=== PATIENT | female | born 1945 | race Caucasian/White ===

== ENCOUNTER → 2017-12-05 12:46 | Outpatient (CLI) | payer MEDICARE, OTHER ==
[2013-05-13 05:05] VITALS: BMI 28.0
[~2017-12-05 12:46] MED LIST: CARDIZEM SR60 MG PO; DEMEROL50 MG PO; PHENERGAN25 M1 PO; TOPROL XL25 MG PO; VALIUM5 MG PO
== END | disposition home or self-care (01) ==
LOC: D.MRI 12:46
DX: S49.91XA Unspecified injury of right shoulder and upper arm, initial encounter (principal); V89.2XXA Person injured in unspecified motor-vehicle accident, traffic, initial encounter; Y93.89 Activity, other specified; Y92.410 Unspecified street and highway as the place of occurrence of the external cause

== ENCOUNTER 2019-01-18 14:26 | Inpatient (IN) | payer MEDICARE, OTHER ==
[~2019-01-18] VITALS: Ht 154.9 cm; Wt 60.7 kg
[2019-01-18] MEDS ORDERED: LEVOXYL75 MCG PO (14:46)
[2019-01-18 15:25] LABS: BASOPHILS 0.1 % (0-2); EOSINOPHILS 0.1 % (0-7); HEMATOCRIT 41.4 % (36.0-48.0); HEMOGLOBIN 13.4 g/dL (12-16); IMMATURE GRANULOCYTES 0.1 % (0-5); LYMPHOCYTES 6.2 % (15-50); MCH 29.5 pg (26.0-34.0); MCHC 32.4 g/dL (31.0-37.0); MCV 91.2 fL (80.0-100.0); MEAN PLATELET VOLUME 9.2 fL (7.4-10.4); MONOCYTES 7.9 % (2-11); NEUTROPHILS 85.6 % (40-80); PLATELET COUNT 170 10x3/uL (130-400); RBC 4.54 10x6/uL (4.00-5.40); RDW 15.9 % (11.5-14.5); WBC 9.5 10x3/uL (4.8-10.8)
[2019-01-18 15:39] LABS: CALC OSMOLALITY 286 mosm/kg (275-300); CALCIUM 8.9 mg/dL (8.5-10.1); CARBON DIOXIDE 29.8 mmol/L (21.0-32.0); CHLORIDE - SERUM 102 mmol/L (98-107); CREATININE - SERUM 0.7 mg/dL (0.6-1.3); GLUCOSE 173 mg/dL (74-106); POTASSIUM - SERUM 3.9 mmol/L (3.5-5.1); SODIUM 141 mmol/L (136-145); UREA NITROGEN 17 mg/dL (7-18); eGFR NON AFRICAN AMERICAN 87 mL/min (90-120)
[2019-01-18 15:47] LABS: ALBUMIN 3.6 g/dL (3.4-5.0); ALKALINE PHOSPHATASE 75 U/L (46-116); ALT (SGPT) 32 U/L (10-68); AMYLASE - SERUM 38 U/L (25-115); LIPASE 74 U/L (73-393); PROTEIN - SERUM 7.4 g/dL (6.4-8.2)
[2019-01-18 15:50] LABS: TROPONIN-I < 0.017 ng/mL (0.000-0.060)
[2019-01-18 18:29] LABS: APPEARANCE CLEAR (CLEAR); BILIRUBIN NEGATIVE (NEGATIVE); COLOR YELLOW (YELLOW); GLUCOSE NEGATIVE (NEGATIVE); KETONE SMALL mg/dL (NEGATIVE); NITRITE NEGATIVE (NEGATIVE); PROTEIN TRACE mg/dL (NEGATIVE); SPECIFIC GRAVITY 1.015 (1.005-1.020); UROBILINOGEN NORMAL (NORMAL)
[2019-01-18 18:30] LABS: RED CELLS - URINE 0-5 /hpf (0-5); WHITE CELLS - URINE 25-50 /hpf (NEGATIVE)
[2019-01-18 18:31] LABS: BACTERIA MODERATE /hpf (NEGATIVE); EPITHELIAL CELLS 0-5 /hpf (0-5)
--- NOTE | 2019-01-18 20:48 | NUR ---
PT ARRIVED VIA W/C FROM ER. NO DISTRESS NOTED. CALL LIGHT WITHIN REACH.
[2019-01-18 21:33] VITALS: BP 110/52; BMI 25.2
--- NOTE | 2019-01-18 22:38 | NUR ---
ADMISSION ASSESSMENT, HISTORY AND HOME MED LIST COMPLETED BY 2200 HRS. VSS. IV TO LAC WITH NS AT 100CC/HR. IV PATENT. BRUISE NOTED TO R ARM. LUNGS CTA. L HIP STIFF S/P HIP REPLACEMENT IN SEPTEMBER. ALERT AND ORIENTED TO PERSON, PLACE AND TIME. NON SLIP SOCKS PLACED ON PT. PT CURRENTLY WATCHING TV. SR UP X1, CALL LIGHT WITHIN REACH.
--- NOTE | 2019-01-18 23:54 | NUR ---
IV RESITED TO LFA PER PT'S REQUEST. #20 WITH ATTEMPT X1. PT TOLERATED ACTIVITY WELL. IV TO LAC DC'D WITH CATHETER INTACT. SR UP X1, CALL LIGHT WITHIN REACH.
--- NOTE | 2019-01-19 02:00 | NUR ---
PT AWAKE; STATES STILL HAS ELISE BUT PAIN MUCH LESS INTENSE. VOIDED 500CC OF DARK YELLOW URINE. CALL LIGHT WITHIN REACH.
[2019-01-19 04:00] VITALS: BP 120/43
--- NOTE | 2019-01-19 04:12 | NUR ---
PT SHAKING UNCONTROLABLY AT 0340 HRS AND HAS C/O ELISE. TEMP 99.1. TYLENOL 650MG PO GIVEN FOR C/O ELISE AND ADDITIONAL BLANKET GIVEN OT PT. PT NOT SHAKING AT THIS TIME. CALL LIGHT WITHIN REACH.
--- NOTE | 2019-01-19 04:18 | NUR ---
TEMP NOW 102.6. NO SHAKING AT THIS TIME.
--- NOTE | 2019-01-19 06:25 | NUR ---
VSS EXCEPT INTERMITTENT ELEVATED TEMP. STATES FEELS BETER THIS AM. NEEDS MET; WILL CONTINUE TO MONITOR.
--- NOTE | 2019-01-19 07:39 | NUR ---
PT RESTING. RR EVEN AND UNLABORED. ASKED IF SHE WANTED SCDs, PT REFUSED. DENIES FURTHER NEEDS OR PAIN AT THIS TIME. BED IN LOWEST POSITION. CALL LIGHT WITHIN REACH. WILL CONTINUE TO MMONITOR.
[2019-01-19 08:00] VITALS: BP 120/79
--- NOTE | 2019-01-19 09:30 | NUR ---
PT C/O MIGRANE PAIN AND IS FEBRILE. TASNEEM BRINK NOTIFIED. ORDER FOR EXEDRINE RECIEVED AND GIVEN PER ORDER. REMOVED BLANKETS FROM PT AND COVERED HER WITH SHEET. COLD WASH CLOTH APPLIED TO FOREHEAD.WILL CONTINUE TO MONITOR
[2019-01-19 10:51] VITALS: Ht 154.9 cm; Wt 60.7 kg
[2019-01-19 12:00] VITALS: BP 87/45
--- NOTE | 2019-01-19 19:30 | NUR ---
RECEIVED BEDSIDE REPORT. PATIENT IS ALERT AND ORIENTED, RESTING COMFORTABLY IN BED. RESPIRATIONS ARE EVEN AND UNLABORED. NO S/S OF DISTRESS. NO C/O PAIN. DR HERNANDEZ SEEN PATIENT. NEEDS MET. CALL LIGHT WITHIN REACH. WILL CPOC.
[2019-01-19 20:00] VITALS: BP 128/53
[2019-01-20] VITALS: BP 148/70
[2019-01-20 04:25] VITALS: BP 110/53
[2019-01-20 08:50] VITALS: BP 104/56
[2019-01-20 12:36] VITALS: BP 125/57
--- NOTE | 2019-01-20 14:35 | NUR ---
PT UP AND WALKING THE HALLS AT THIS TIME. NO S/S OF DISTRESS NOTED. PT SEEMS TO BE IN GOOD SPIRITS AND DENIES ANY NEEDS. WILL CTM. NS INFUSING @100ML/HR VIA L.FOR PIV.
[2019-01-20 14:52] LABS: BASOPHILS 0.2 % (0-2); EOSINOPHILS 0.8 % (0-7); HEMATOCRIT 34.1 % (36.0-48.0); LYMPHOCYTES 27.4 % (15-50); MCH 28.9 pg (26.0-34.0); MCHC 31.4 g/dL (31.0-37.0); MCV 92.2 fL (80.0-100.0); MEAN PLATELET VOLUME 9.3 fL (7.4-10.4); MONOCYTES 13.3 % (2-11); NEUTROPHILS 58.3 % (40-80); PLATELET COUNT 150 10x3/uL (130-400); RDW 15.9 % (11.5-14.5)
[2019-01-20 15:04] LABS: HEMOGLOBIN 10.7 g/dL (12-16); WBC 5.3 10x3/uL (4.8-10.8)
[2019-01-20 17:05] VITALS: BP 118/54
--- NOTE | 2019-01-20 17:43 | NUR ---
I have reviewed this patient and I concur with the Shift Assessment completed by the Licensed Practical Nurse today this shift.
--- NOTE | 2019-01-20 19:18 | NUR ---
EVENING ROUNDS COMPLETE. PT LAYING IN BED, AAOX4. NO SIGNS OF DISTRESS. PT DENIES ANY PAIN OR NEEDS AT THIS TIME. CL IN REACH, BED IN LOWEST POSITION.
[2019-01-20 20:00] VITALS: BP 135/57
[2019-01-21] VITALS: BP 113/50
[2019-01-21 04:00] VITALS: BP 118/87
[2019-01-21 04:26] LABS: BASOPHILS 0.3 % (0-2); HEMOGLOBIN 10.8 g/dL (12-16); IMMATURE GRANULOCYTES 0.2 % (0-5); LYMPHOCYTES 27.9 % (15-50); MCH 29.1 pg (26.0-34.0); MCHC 31.8 g/dL (31.0-37.0); MCV 91.6 fL (80.0-100.0); MEAN PLATELET VOLUME 10.1 fL (7.4-10.4); MONOCYTES 13.6 % (2-11); PLATELET COUNT 132 10x3/uL (130-400); RBC 3.71 10x6/uL (4.00-5.40); WBC 5.9 10x3/uL (4.8-10.8)
[2019-01-21 04:57] LABS: CALC OSMOLALITY 284 mosm/kg (275-300); CALCIUM 8.2 mg/dL (8.5-10.1); CARBON DIOXIDE 26.5 mmol/L (21.0-32.0); CHLORIDE - SERUM 108 mmol/L (98-107); CREATININE - SERUM 0.7 mg/dL (0.6-1.3); POTASSIUM - SERUM 3.1 mmol/L (3.5-5.1); SODIUM 143 mmol/L (136-145); UREA NITROGEN 11 mg/dL (7-18); eGFR NON AFRICAN AMERICAN 87 mL/min (90-120)
[2019-01-21 04:58] LABS: GLUCOSE 120 mg/dL (74-106)
[2019-01-21 08:45] VITALS: BP 119/57
--- NOTE | 2019-01-21 09:13 | NUR ---
PT UP BRUSHING HER TEETH. PT A/O X4, RESP EVEN AND NONLABORED ON RA. LT FA INFUSING NS AT 100CC/HR. PT DENIES ANY NEEDS AT THIS TIME. CALL LIGHT IN REACH, NAD NOTED, WILL CONTINUE PLAN OF CARE.
[2019-01-21] MEDS ORDERED: LEVOFLOXACIN500 MG PO (09:53)
--- NOTE | 2019-01-21 12:44 | NUR ---
SECOND TIME TRYING TO PROVIDED DISCHARGE TEACHING TO PT. PT EATING LUNCH WANTS TO WAIT UNTIL SHE IS DONE, WILL PUT CALL LIGHT ON WHEN READY FOR NURSE TO COME DO DISCHARGE TEACHING.
[2019-01-21 13:04] VITALS: BP 128/59
--- NOTE | 2019-01-21 13:32 | NUR ---
PROVIDED VERBAL AND WRITTEN DISCHARGE TEACHING TO PT, WHO VERBALIZED UNDERSTANDING REGARDING TEACHING. LT FA IV D/C WITH CATHETER INTACT BY MANAGING EDITOR. PT WILL NOTIFY WHEN READY FOR WHEELCHAIR.
--- NOTE | 2019-01-21 15:00 | NUR ---
PT LEFT UNIT VIA WHEELCHAIR, WITH ALL BELONGINGS. NAD NOTED.
--- NOTE | 2019-01-21 16:47 | MORECARE ---
CASE MANAGEMENT DISCHARGE SUMMARY PATIENT: ABDOULAYE DONOVAN UNIT: [id number] ADM DATE: 01/18/19 AGE: 73 : [birth year] SEX: F ROOM/BED: D.2137 AUTHOR: SILVIO CAI PHYSICIAN: REFERRING PHYSICIAN: SHARI GREEN MD DATE OF SERVICE: 01/21/19 Discharge Plan Patient Name: ABDOULAYE DONOVAN Facility: [facility]:[place] : 1945 Planned Disposition: Home Anticipated Discharge Date: 01/21/19 Discharge Date: 01/21/2019 Expected LOS: 3 Initial Reviewer: [id number] Initial Review Date: 01/21/2019 Generated: 01/21/19 5:47 pm Comments DCP- Discharge Planning Updated by [id number]: Moshe Beltran on 01/21/19 3:[address] Patient Name: ABDOULAYE DONOVAN Admission Status: ER Accout number: [id number] Admission Date: 01-18-2019 : 1945 Admission Diagnosis: Attending: SHARI GREEN Current LOS: 3 Anticipated DC Date: 01-21-2019 Planned Disposition: Home Primary Insurance: MEDICARE A & B Discharge Planning Comments: CM MET WITH PT IN ROOM TO DISCUSS DISCHARGE PLANNING AND NEEDS. PT REPORTS LIVING AT HOME INDEPENDENTLY WITH SPOUSE. PT HAS A CANE SHE USES, A WALKER AND BEDSIDE COMMODE SHE DOES NOT USE FROM [facility]. PT HAS NO OUTSIDE SERVICES ASSISTING IN THE HOME. CM DISCUSSED AVAILABILITY OF HOME HEALTH, REHAB SERVICES AND MEDICAL EQUIPMENT. PT DENIES DISCHARGE NEEDS, REPORTS HER WILL PICK HER UP FOR DISCHARGE HOME. IMPORTANT MESSAGE FROM MEDICARE PROVIDED AND EXPLAINED. Patient Care Secretary: Moshe Beltran DCPIA - Discharge Planning Initial Assessment Updated by [id number]: Moshe Beltran on 01/21/19 4:42 pm * Is the patient Alert and Oriented? Yes * How many steps to enter\exit or inside your home? * PCP DR. FAULKNER * Pharmacy [facility] * Preadmission Environment Home with Family * ADLs Independent * Equipment Bedside Commode Cane Walker * Other Equipment [facility] - PREFERRED MEDICAL EQUIPMENT PROVIDER * List name and contact numbers for known caregivers / representatives who currently or will assist patient after discharge: JARON DONOVAN, SPOUSE, * Verbal permission to speak to the caregivers and representatives has been obtained from the patient. N/A * Community resources currently utilized None * Please name any agencies selected above. NONE * Additional services required to return to the preadmission environment? No * Can the patient safely return to the preadmission environment? Yes * Has this patient been hospitalized within the prior 30 days at any hospital? Yes Coverage Notice Reviewer: [id number] Bella Beltran Notice Issued Date-Time: 01/21/2019 11:50 Notice Type: IM Discharge Notice Notice Delivered To: Patient Relationship to Patient: Ms Sql Server Developer Name: Delivery Method: HAND - Hand Delivered Morenita Days: Prior Verbal Notification: Recipient Understood Notice: Yes Recipient Signature: Yes Med Rec Note Co-signed by Attending: Coverage Notice Comment: Patient Name: ABDOULAYE DONOVAN Page [phone] at 1647 All edits/amendments must be made on the electronic document DICTATION DATE: 01/21/191646 SENIOR BRAND MANAGER: HANS 01/21/191646 RPT#: [id number] DC DATE:01/21/19 STATUS: DIS IN [facility] [address] [place] [address] END OF REPORT
== END 2019-01-21 15:24 | disposition home or self-care (01) | DRG 872 ==
LOC: D.ER 14:26 → D.M2 19:29 → D.SDCHOLD 01-19 08:44 → D.M2 01-19 08:44 → D.SDCHOLD 01-21 13:44 → D.M2 01-21 15:24
PROVIDERS: Family Medicine; ADMIT Internal Medicine Nephrology; ATTEND Internal Medicine Nephrology
DX: A41.9 Sepsis, unspecified organism (principal); N39.0 Urinary tract infection, site not specified; N10 Acute pyelonephritis; I10 Essential (primary) hypertension; E78.5 Hyperlipidemia, unspecified; E03.9 Hypothyroidism, unspecified; F41.9 Anxiety disorder, unspecified; N76.0 Acute vaginitis

== ENCOUNTER → 2019-10-05 12:53 | Outpatient (CLI) | payer MEDICARE, BC ==
[2019-01-19 10:51] VITALS: BMI 25.2
[~2019-10-05 12:53] MED LIST changes: +LEVOFLOXACIN500 MG PO; +LEVOXYL75 MCG PO
== END | disposition home or self-care (01) ==
LOC: D.MRI 12:53
PROVIDERS: ATTEND Emergency Medicine
DX: M54.12 Radiculopathy, cervical region (principal)

== ENCOUNTER 2019-12-16 03:48 | Inpatient (IN) | payer MEDICARE, BC ==
[~2019-12-16] VITALS: Ht 154.9 cm; Wt 64.0 kg
[2019-12-16] MEDS ORDERED: MEPERIDINE HCL50 MG PO (03:59)
[2019-12-16] MEDS ORDERED: ACETAMINOPHEN500 M1 PO (03:59)
[2019-12-16] MEDS ORDERED: TOPROL XL25 MG PO (04:00)
[2019-12-16] MEDS ORDERED: FARXIGA10 MG PO (04:01)
[2019-12-16 04:50] LABS: BASOPHILS 0.2 % (0-2); EOSINOPHILS 0.1 % (0-7); HEMATOCRIT 46.1 % (36.0-48.0); HEMOGLOBIN 15.1 g/dL (12-16); IMMATURE GRANULOCYTES 0.3 % (0-5); MCH 30.8 pg (26.0-34.0); MCHC 32.8 g/dL (31.0-37.0); MCV 93.9 fL (80.0-100.0); MEAN PLATELET VOLUME 10.1 fL (7.4-10.4); MONOCYTES 9.3 % (2-11); NEUTROPHILS 77.1 % (40-80); RBC 4.91 10x6/uL (4.00-5.40); RDW 12.5 % (11.5-14.5); WBC 12.9 10x3/uL (4.8-10.8)
[2019-12-16 04:54] LABS: ANION GAP 15.9 mmol/L (8-16); CALCIUM 9.6 mg/dL (8.5-10.1); CARBON DIOXIDE 25.7 mmol/L (21.0-32.0); CREATININE - SERUM 0.8 mg/dL (0.6-1.3); POTASSIUM - SERUM 3.6 mmol/L (3.5-5.1)
[2019-12-16 04:55] LABS: PLATELET COUNT 208 10x3/uL (130-400)
[2019-12-16 05:02] VITALS: BP 114/58
[2019-12-16 05:06] LABS: BILIRUBIN - TOTAL 0.45 mg/dL (0.2-1.3); PROTEIN - SERUM 8.5 g/dL (6.4-8.2)
[2019-12-16 05:13] LABS: BILIRUBIN NEGATIVE (NEGATIVE); KETONE MODERATE mg/dL (NEGATIVE); NITRITE POSITIVE (NEGATIVE); UROBILINOGEN NORMAL mg/dL (< 2)
[2019-12-16 05:14] LABS: BACTERIA MODERATE HPF (NONE SEEN); EPITHELIAL CELLS 0-5 /hpf (0-5)
[2019-12-16 05:56] VITALS: BP 107/53
--- NOTE | 2019-12-16 05:58 | NUR ---
back from ct
--- NOTE | 2019-12-16 07:18 | NUR ---
PT GIVEN ADENOSINE TO CONVERT HER OUT OF SVT AND PUT HER BACK INTO A NSR. PT TOLERATED THE MEDICATION WELL. PT'S CURRENT V/S HR86, BP 147//72, O2 SAT 96% RR14. PT REPORTS THAT HER CHEST DISCOMFORT HAS GREATLY SUBSIDED AFTER CONVERSION.
--- NOTE | 2019-12-16 13:29 | NUR ---
PATIENT CAME TO DESK STATING SHE NEEDS SOMETHING FOR PAIN AND WANTED TO KNOW WHAT SHE HAD ORDERED, I EXPLAINED THAT THE DOCTOR HAS ORDERED TORADOL TO EASE HER PAIN PATIENT THEN STATED" THAT IS LIKE EATING 3 GRAPES! tHAT WILL DO NOTHING FOR ME" ADVISED PATIENT THAT WE WILL TALK TO HER WHEN SHE MAKES ROUNDS. NO OTHER NEEDS VOICED, CONTINUE WITH PLAN OF CARE
[2019-12-16 14:22] VITALS: BP 121/92; Ht 154.9 cm; Wt 64.0 kg
[2019-12-16 14:30] VITALS: BP 121/92
--- NOTE | 2019-12-16 21:17 | NUR ---
REC'D. SITTING ON SIDE OF BED DRY HEAVING GOWN GIVEN LINENS CHGED INFORMED HAD ELIESER AT 1730 WILL BE 2130 BEFORE ANOTHER DOSE DUE VOICES UNDERSTANDING. REINFORCE NPO AT MIDNITE.WILL CONTINUE TO MONITOR FOR ANY CHGES AND FOLLOW CURRENT PLAN OF CARE
[2019-12-16 22:21] VITALS: BP 142/72
--- NOTE | 2019-12-17 03:10 | NUR ---
I have reviewed this patient and I concur with the Shift Assessment completed by the Licensed Practical Nurse today this shift.
[2019-12-17 04:00] VITALS: BP 116/88
[2019-12-17 06:19] LABS: HEMATOCRIT 43.4 % (36.0-48.0); HEMOGLOBIN 14.1 g/dL (12-16); MCH 30.8 pg (26.0-34.0); MCHC 32.5 g/dL (31.0-37.0); MCV 94.8 fL (80.0-100.0); PLATELET COUNT 182 10x3/uL (130-400); RBC 4.58 10x6/uL (4.00-5.40); RDW 12.9 % (11.5-14.5)
[2019-12-17 06:28] LABS: ANION GAP 13.2 mmol/L (8-16); CALCIUM 8.5 mg/dL (8.5-10.1); CARBON DIOXIDE 27.1 mmol/L (21.0-32.0); MAGNESIUM - SERUM 1.8 mg/dL (1.8-2.4); PHOSPHOROUS 4.3 mg/dL (2.5-4.9)
[2019-12-17 06:30] LABS: CREATININE - SERUM 1.3 mg/dL (0.6-1.3); POTASSIUM - SERUM 4.3 mmol/L (3.5-5.1)
[2019-12-17 06:46] LABS: LYMPHOCYTES 7 % (15-50); MONOCYTES 2 % (2-11); NEUTROPHILS 70 % (40-80); PLATELET ESTIMATE NORMAL
--- NOTE | 2019-12-17 07:35 | NUR ---
ASSESSMENT PER FLOW SHEET. PATIENT IS WITHOUT DISTRESS.NPO FOR PROCEDURE TODAY. PATIENT IS VERY ANXIOUS RE.. HER VASU SALMERON HAS CANCER AND SHE NEEDS TO BE HOME.MONITOR
[2019-12-17 08:00] VITALS: BP 119/56
--- NOTE | 2019-12-17 08:30 | NUR ---
LEFT UNIT VIA BED FOR OR.
[2019-12-17 10:54] VITALS: BP 103/48
--- NOTE | 2019-12-17 11:13 | NUR ---
BACK FROM PACU. VSS. PATIENT HAS VOIDED
[2019-12-17 11:56] VITALS: BP 109/52
--- NOTE | 2019-12-17 12:15 | OP ---
PATIENT NAME: ABDOULAYE DONOVAN MEDICAL RECORD: [id number] :[birth year] LOCATION:D.[id number] ADMISSION DATE:12/16/19 SURGEON: TOR HERNANDEZ MD DATE OF OPERATION: 12/17/2019 SURGEON: Tor Hernandez MD ANESTHESIA: General anesthesia by Haroon Hester CRNA. DIAGNOSIS: Left proximal ureteral 5-mm stone. PROCEDURE: Cystoscopy, left retrograde pyelogram, left ESWL times 1500 shocks. FINDINGS: Radiolucent proximal ureteral stone, seen on the retrograde pyelogram. No bladder tumors. CLINICAL HISTORY: This is a 74-year-old female with no previous history of kidney stone. She came to the Emergency Room with acute left flank pain. A CT scan of the abdomen and pelvis shows a 5-mm stone in the left proximal ureter causing hydronephrosis. She was admitted for pain control. She comes today to the OR to have a planned left ESWL with left ureteral stent insertion. She was given Ancef 2 grams IV trailhead construction worker to the OR. DESCRIPTION OF PROCEDURE: The patient was placed on the treatment table. Fluoroscopy was performed, but she has a lot of bowel contents in the colon. We could not clearly identify a radiodense stone. The patient is still complaining of 3 out of 10 left-sided flank pain. We decided to proceed with a retrograde pyelogram to at least determine if she has an obstructive stone somewhere in the ureter. The patient was given induction of general anesthesia. She was then placed into lithotomy position and prepped and draped. A 22-Uzbek cystoscope with 30-degree lens was used for visualization. She has single ureteral orifices on each side and no bladder tumors were seen. A 5-Uzbek open-ended ureteral catheter was inserted and a retrograde pyelogram was performed. In the proximal ureter, we found a radiolucency surrounded by contrast, which identified the stone. The sone otherwise is not visible without the contrast. I brought the ureteral catheter to a point just about 1 cm distal to the stone. We continued to inject diluted contrast while the stone was targeted in 2 planes. A 1500 shocks were given to the stone. We then repeated the retrograde pyelogram through the ureteral catheter, which we had left in place. At this point, we could see no further stones and there was no further hydronephrosis or filling defects in the ureter. We then terminated the procedure. The ureteral catheter was removed entirely. No stent was inserted as we had to use the ureteral catheter to inject contrast to visualize the stone to target and to monitor our progress. The patient will be discharged home today with some pain medication. I will see her in followup in 1 months' time. TRANSINT:[id number] Voice Confirmation ID: [id number] DOCUMENT ID: [id number] OPERATIVE REPORT [id number] ABDOULAYE DONOVAN, TOR Thompson MD at 1215 CC: [id number] DICTATION DATE: 12/17/19 1026 SENIOR SOFTWARE ENGINEERING MANAGER: 12/17/19 1143 ADM IN [facility] [address] [place] [address]
[2019-12-17] MEDS ORDERED: HYDROCODON-ACE1 EAC7 PO (13:35)
[2019-12-17 15:53] VITALS: BP 110/42
[2019-12-17 20:00] VITALS: BP 108/45
[2019-12-17] MEDS ORDERED: MAG-OX 400 MG400 MG PO (22:14)
[2019-12-18] VITALS: BP 109/50
[2019-12-18 04:00] VITALS: BP 107/55
--- NOTE | 2019-12-18 04:05 | NUR ---
I have reviewed this patient and I concur with the Shift Assessment completed by the Licensed Practical Nurse today this shift.
[2019-12-18 08:00] VITALS: BP 95/41
[2019-12-18] MEDS ORDERED: LEVOFLOXACIN500 MG PO (08:26)
[2019-12-18] MEDS ORDERED: PROTONIX40 MG PO (08:26)
[2019-12-18 09:33] LABS: BASOPHILS 0.1 % (0-2); EOSINOPHILS 0.9 % (0-7); HEMATOCRIT 39.4 % (36.0-48.0); HEMOGLOBIN 12.8 g/dL (12-16); IMMATURE GRANULOCYTES 0.2 % (0-5); LYMPHOCYTES 17.4 % (15-50); MCH 30.6 pg (26.0-34.0); MCHC 32.5 g/dL (31.0-37.0); MCV 94.3 fL (80.0-100.0); NEUTROPHILS 72.4 % (40-80); PLATELET COUNT 153 10x3/uL (130-400); RBC 4.18 10x6/uL (4.00-5.40); RDW 12.8 % (11.5-14.5); WBC 10.2 10x3/uL (4.8-10.8)
[2019-12-18 09:48] LABS: ALBUMIN 3.1 g/dL (3.4-5.0); ANION GAP 11.7 mmol/L (8-16); BILIRUBIN - TOTAL 0.24 mg/dL (0.2-1.3); CALCIUM 8.9 mg/dL (8.5-10.1); POTASSIUM - SERUM 3.7 mmol/L (3.5-5.1); PROTEIN - SERUM 6.6 g/dL (6.4-8.2)
[2019-12-18] MEDS ORDERED: ZOFRAN ODT4 MG/UDTAB PO (10:43)
--- NOTE | 2019-12-18 13:45 | NUR ---
IV RESITED TO RIGHT FOREARM X1 STICK USING ASEPTIC TECH,20G. IV LEFT FOREARM DCD WITH CATH TIP INTACT. IV LEAKING
--- NOTE | 2019-12-18 14:48 | MORECARE ---
CASE MANAGEMENT DISCHARGE SUMMARY PATIENT: ABDOULAYE DONOVAN UNIT: [id number] ADM DATE: 12/16/19 AGE: 74 : [birth year] SEX: F ROOM/BED: D.2234 AUTHOR: SILVIO CAI PHYSICIAN: REFERRING PHYSICIAN: ERNESTINA MUNGUIA MD DATE OF SERVICE: 12/18/19 Discharge Plan Patient Name: ABDOULAYE DONOVAN Facility: [facility]:[place] : 1945 Planned Disposition: Anticipated Discharge Date: Discharge Date: Expected LOS: Initial Reviewer: [email or web address] Initial Review Date: 12/16/2019 Generated: 12/18/19 3:47 pm Comments DCP- Discharge Planning Updated by [id number]: Olga Wright on 12/18/19 1:[address] Patient Name: ABDOULAYE DONOVAN Admission Status: ER Accout number: [id number] Admission Date: 12-16-2019 : 1945 Admission Diagnosis:SEPSIS, UNSPECIFIED ORGANISM Attending: BALBIR Current LOS: 2 Anticipated DC Date: Planned Disposition: Primary Insurance: MEDICARE A & B Discharge Planning Comments: CM met with patient at bedside after explaining CM role and obtaining verbal consent. CM discussed availability / needs of home health, REHAB and medical equipment. STATES PLANS TO DC TO HOME AND DOES NOT WANT HH OR REHAB, DOES NOT NEED EQUIPMENT. CM TO FOLLOW AND ASSIST NEEDED. Wrapper Caser: Olga Wright Patient Name: ABDOULAYE DONOVAN Page [id number] at 1448 All edits/amendments must be made on the electronic document DICTATION DATE: 12/18/191446 ECONOMIC RESEARCH ASSISTANT: HANS 12/18/19 144 RPT#: [id number] DC DATE: STATUS: ADM IN [facility] [address] [place] [address] END OF REPORT
--- NOTE | 2019-12-18 16:52 | NUR ---
ASSESSMENT PER FLOW SHEET. PATIENT IS WITHOUT DISTRESS,BUT COMPLAINS OF HEADACHE. MONITOR
[2019-12-18 16:59] VITALS: BP 119/57
--- NOTE | 2019-12-18 18:24 | NUR ---
EATING DINNER,WITHOUT DISTRESS. COMPLAINS OF SOME NAUSEA. HAD BM. WISHES TO DO OWN SUPPOSITORY AFTER DINNER
--- NOTE | 2019-12-18 19:00 | NUR ---
BEDSIDE REPORT RECEIVED AND CARE OF PT ASSUMED. PT AMBULATING IN ROOM AT THIS TIME, BRUSHING HER TEETH AND CLEANING HERSELF. IV TO RIGHT FA PATENT WITH NS INFUSING AT 75 ML/HR. WILL MONITOR FOR NEEDS.
--- NOTE | 2019-12-18 19:15 | NUR ---
PROVIDED PT WITH CLEAN GOWN AND NEW SOCKS.
--- NOTE | 2019-12-18 20:46 | NUR ---
HS MEDICATIONS GIVEN TO INCLUDE VALIUM PO PER PRN ORDER, PER REQUEST. WILL CONTINUE TO MONITOR FOR NEEDS.
[2019-12-19 01:33] VITALS: BP 137/52
[2019-12-19 05:36] VITALS: BP 118/32
[2019-12-19 06:55] LABS: BASOPHILS 0.3 % (0-2); EOSINOPHILS 2.5 % (0-7); HEMATOCRIT 36.8 % (36.0-48.0); HEMOGLOBIN 11.6 g/dL (12-16); IMMATURE GRANULOCYTES 0.2 % (0-5); LYMPHOCYTES 28.6 % (15-50); MCH 30.1 pg (26.0-34.0); MCHC 31.5 g/dL (31.0-37.0); MCV 95.3 fL (80.0-100.0); MEAN PLATELET VOLUME 10.3 fL (7.4-10.4); MONOCYTES 9.7 % (2-11); NEUTROPHILS 58.7 % (40-80); PLATELET COUNT 147 10x3/uL (130-400); RBC 3.86 10x6/uL (4.00-5.40); RDW 12.8 % (11.5-14.5)
[2019-12-19 06:57] LABS: WBC 5.9 10x3/uL (4.8-10.8)
[2019-12-19 07:29] LABS: ALBUMIN 2.5 g/dL (3.4-5.0); ANION GAP 11.4 mmol/L (8-16); BILIRUBIN - TOTAL 0.15 mg/dL (0.2-1.3); CALCIUM 8.4 mg/dL (8.5-10.1); CARBON DIOXIDE 25.4 mmol/L (21.0-32.0); CREATININE - SERUM 0.8 mg/dL (0.6-1.3); POTASSIUM - SERUM 3.8 mmol/L (3.5-5.1)
--- NOTE | 2019-12-19 08:00 | NUR ---
PATIENT IN BED WITH IV INTACT. NO COMPLAINTS OR SIGNS OF DISTRESS. STATED SHE IS TIRED AND WANTS TO REST. CALL LIGHT WITHIN REACH.
[2019-12-19 09:21] VITALS: BP 143/71
--- NOTE | 2019-12-19 11:56 | MORECARE ---
CASE MANAGEMENT DISCHARGE SUMMARY PATIENT: ABDOULAYE DONOVAN UNIT: [id number] ADM DATE: 12/16/19 AGE: 74 : [birth year] SEX: F ROOM/BED: D.2234 AUTHOR: AYALADOC PHYSICIAN: REFERRING PHYSICIAN: ERNESTINA MUNGUIA MD DATE OF SERVICE: 12/19/19 Discharge Plan Patient Name: ABDOULAYE DONOVAN Facility: [facility]:[place] : 1945 Planned Disposition: Anticipated Discharge Date: Discharge Date: Expected LOS: Initial Reviewer: [email or web address] Initial Review Date: 12/16/2019 Generated: 12/19/19 12:55 pm Comments DCP- Discharge Planning Updated by [id number]: Niurka Canada on 12/19/19 10:[address] Patient Name: ABDOULAYE DONOVAN Encounter No: [id number] : 1945 Primary Insurance: MEDICARE A & B Anticipated DC Date: Planned Disposition: External Planned Provider: : DCP follow-up note: Patient and family in agreement with discharge plan. No changes to plan. 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 Case management will follow and assist as needed. Niurka Canada DCP- Discharge Planning Updated by [id number]: Olga Wright on 12/18/19 1:[address] Patient Name: ABDOULAYE DONOVAN Admission Status: ER Accout number: [id number] Admission Date: 12-16-2019 : 1945 Admission Diagnosis:SEPSIS, UNSPECIFIED ORGANISM Attending: BALBIR Current LOS: 2 Anticipated DC Date: Planned Disposition: Primary Insurance: MEDICARE A & B Discharge Planning Comments: CM met with patient at bedside after explaining CM role and obtaining verbal consent. CM discussed availability / needs of home health, REHAB and medical equipment. STATES PLANS TO DC TO HOME AND DOES NOT WANT HH OR REHAB, DOES NOT NEED EQUIPMENT. CM TO FOLLOW AND ASSIST NEEDED. Manager Ship: Olga Wright Coverage Notice Reviewer: [id number] - Niurka Canada Notice Issued Date-Time: 12/19/2019 11:30 Notice Type: IM Discharge Notice Notice Delivered To: Patient Relationship to Patient: Self Insurance Service Representative Name: Delivery Method: HAND - Hand Delivered Morenita Days: Prior Verbal Notification: Recipient Understood Notice: Yes Recipient Signature: Yes Med Rec Note Co-signed by Attending: Coverage Notice Comment: IMM explained, signed, given, copy placed in MR Last DP export: 12/18/19 1:48 p Patient Name: ABDOULAYE DONOVAN Page [phone] at 1156 All edits/amendments must be made on the electronic document DICTATION DATE: 12/19/191154 COMPUTER TECHNICAL SUPPORT SPECIALIST: HANS 12/19/191154 RPT#: [id number] DC DATE: STATUS: ADM IN [facility] [address] [place] [address] END OF REPORT
--- NOTE | 2019-12-19 13:33 | NUR ---
PATIENT RECIEVED DC INSTRUCTIONS. VERBALIZED UNDERSTANDING AT THIS TIME. IV REMOVED WITH CATH TIP INTACT. NO QUESTIONS AT THIS TIME. STATED HER PHARMACY WAS CLOSED AND WOULD LIKE MEDS CALLED INTO [facility] ON [address]. WILL CALL AT THIS TIME. WAITING FOR TRANSPORTATION. CALLL IGHT WITHIN REACH.
--- NOTE | 2019-12-19 14:32 | NUR ---
CALLED MEDS INTO [facility] [address] PER PATIENT REQUEST. ESCORTED PATIENT OUT OF HOSPITAL VIA AT THIS TIME WITH PERSONAL BELONGINGS TO PRIVATE VEHICLE.
--- NOTE | 2019-12-21 09:06 | MORECARE ---
CASE MANAGEMENT DISCHARGE SUMMARY PATIENT: ABDOULAYE DONOVAN UNIT: [id number] ADM DATE: 12/16/19 AGE: 74 : [birth year] SEX: F ROOM/BED: D.2234 AUTHOR: SILVIO CAI PHYSICIAN: REFERRING PHYSICIAN: ERNESTINA MUNGUIA MD DATE OF SERVICE: 12/21/19 Discharge Plan Patient Name: ABDOULAYE DONOVAN Facility: [facility]:[place] : 1945 Planned Disposition: Anticipated Discharge Date: Discharge Date: 12/19/2019 Expected LOS: Initial Reviewer: [email or web address] Initial Review Date: 12/16/2019 Generated: 12/21/19 10:05 am Comments DCP- Discharge Planning Updated by [id number]: Niurka Canada on 12/19/19 10:[address] Patient Name: ABDOULAYE DONOVAN Encounter No: [id number] : 1945 Primary Insurance: MEDICARE A & B Anticipated DC Date: Planned Disposition: External Planned Provider: : DCP follow-up note: Patient and family in agreement with discharge plan. No changes to plan. States her veterinary pathologist is picking her up when she gets off work at noon. Case management will follow and assist as needed. Niurka Canada DCP- Discharge Planning Updated by [email or web address]: Olga Wright on 12/18/19 1:[address] Patient Name: ABDOULAYE DONOVAN Admission Status: ER Accout number: [id number] Admission Date: 12-16-2019 : 1945 Admission Diagnosis:SEPSIS, UNSPECIFIED ORGANISM Attending: BALBIR Current LOS: 2 Anticipated DC Date: Planned Disposition: Primary Insurance: MEDICARE A & B Discharge Planning Comments: CM met with patient at bedside after explaining CM role and obtaining verbal consent. CM discussed availability / needs of home health, REHAB and medical equipment. STATES PLANS TO DC TO HOME AND DOES NOT WANT HH OR REHAB, DOES NOT NEED EQUIPMENT. CM TO FOLLOW AND ASSIST NEEDED. Forepart Rounder: Olga Wright Coverage Notice Reviewer: [id number] - Niurka [place] Notice Issued Date-Time: 12/19/2019 11:30 Notice Type: IM Discharge Notice Notice Delivered To: Patient Relationship to Patient: Self Molder Meat Name: Delivery Method: HAND - Hand Delivered Morenita Days: Prior Verbal Notification: Recipient Understood Notice: Yes Recipient Signature: Yes Med Rec Note Co-signed by Attending: Coverage Notice Comment: IMM explained, signed, given, copy placed in MR Last DP export: 12/19/19 10:56 Patient Name: ABDOULAYE DONOVAN Page [id number] at 0906 All edits/amendments must be made on the electronic document DICTATION DATE: 12/21/19904 COCKTAIL LOUNGE MANAGER: HANS 12/21/19904 RPT#: [id number] DC DATE:12/19/19 STATUS: DIS IN [facility] [address] [place] [address] END OF REPORT
== END 2019-12-19 14:37 | disposition home or self-care (01) | DRG 872 ==
LOC: D.ER 03:48 → D.EDHOLD 06:49 → D.MS 06:49
PROVIDERS: Family Medicine; Urology; ADMIT Family Medicine; ATTEND Family Medicine
PROC: 0TF7XZZ Fragmentation in Left Ureter, External Approach (ICD-10-PCS; principal; 2019-12-17 08:15)
PROC: BT1F1ZZ Fluoroscopy of Left Kidney, Ureter and Bladder using Low Osmolar Contrast (ICD-10-PCS; 2019-12-17 08:15)
DX: A41.9 Sepsis, unspecified organism (principal); N13.6 Pyonephrosis; N39.0 Urinary tract infection, site not specified; N13.2 Hydronephrosis with renal and ureteral calculous obstruction; E03.9 Hypothyroidism, unspecified; E78.5 Hyperlipidemia, unspecified; I10 Essential (primary) hypertension